=== PATIENT | male | born 1990 | race Caucasian/White ===

== ENCOUNTER 2021-07-29 19:31 | Emergency (ER) | payer OTHER ==
[~2021-07-29] VITALS: Ht 172.7 cm; Wt 73.0 kg
[2021-07-29 20:05] VITALS: BP 105/67
[2021-07-29] MEDS ORDERED: BACITRACIN ZINC OINT UDPKT TOP ONE (20:30)
[2021-07-29] MEDS ORDERED: LIDOCAINE HCL/PF 1% 10 MG/ML 5ML VIAL INFIL ONE (20:30)
[2021-07-29] MEDS ORDERED: TETANUS, DIPHTHERIA, PERTUSSIS VAC/PF 0.5ML (>10YR OLD) IM ONE (21:30)
[2021-07-29] MEDS ORDERED: CEPH500C2 MT (21:51)
[2021-07-29] MEDS ORDERED: CEPHALEXIN 250MG CAPSULE PO ONE (22:00)
== END 2021-07-29 22:30 | disposition home or self-care (01) ==
LOC: ER 19:31
DX: S61.210A Laceration without foreign body of right index finger without damage to nail, initial encounter (principal); W26.8XXA Contact with other sharp object(s), not elsewhere classified, initial encounter; Y93.89 Activity, other specified; Y92.89 Other specified places as the place of occurrence of the external cause
CPT/HCPCS: 12001; 73140; 90471; 90715; 99283; A4217; J3490; Z7610